=== PATIENT | male | born 1950 | race Caucasian/White ===

== ENCOUNTER 2020-01-02 10:00 | Emergency (ER) | payer BC, MEDICARE ==
--- NOTE | 2020-01-02 12:37 | ER Document Report ---
ED Medical Screen (RME) - General Chief Complaint: Cough Stated Complaint: SHORT OF BREATH,FEVER,COUGH Time Seen by Provider: 01/02/20 12:29 - HPI Notes: 01/02/20 12:35 69-year-old male presents to the emergency room with complaints of a dry cough with headache, sinus drainage, sore throat, insomnia for the last 2 days. Went to his primary care office today he had a fever 101F, his pcp advised him to come to the emergency room. Patient has not tried any [id number] medications. Reports he did get his flu shot this year. Denies any chest pain, shortness of breath, nausea, vomiting, or diarrhea. Symptoms have become progressive. Decreased eating drinking without issues. I have greeted and performed a rapid initial assessment of this patient. A comprehensive ED assessment and evaluation of the patient, analysis of test results and completion of the medical decision making process will be conducted by additional ED providers. PHYSICAL EXAMINATION: GENERAL: Well-appearing, well-nourished and in no acute distress. HEAD: Atraumatic, normocephalic. EYES: Pupils equal round extraocular movements intact, conjunctiva are normal. NECK: Normal range of motion CV: s1, s2 regular LUNGS: No respiratory distress - Related Data Allergies/Adverse Reactions: Penicillins Allergy (Verified 01/02/20 12:26) Past Medical History - Social History Frequency of alcohol use: None Drug Abuse: None Physical Exam - Vital signs Vitals: Temp Pulse Resp BP Pulse Ox 98.3 F 88 16 145/80 H 98 01/02/20 10:10 01/02/20 10:10 01/02/20 10:10 01/02/20 10:10 01/02/20 10:10 Course - Vital Signs Vital signs: Temp Pulse Resp BP Pulse Ox 98.3 F 88 16 145/80 H 98 01/02/20 10:10 01/02/20 10:10 01/02/20 10:10 01/02/20 10:10 01/02/20 10:10
--- NOTE | 2020-01-02 13:13 | RADIOLOGY REPORT (SQ) ---
EXAM DESCRIPTION: CHEST SINGLE VIEW IMAGES COMPLETED DATE/TIME: 01/02/2020 11:59 am REASON FOR STUDY: cough, fever 101 today COMPARISON: None. EXAM PARAMETERS: NUMBER OF VIEWS: One view. TECHNIQUE: Single frontal radiographic view of the chest acquired. RADIATION DOSE: NA LIMITATIONS: None. FINDINGS: LUNGS AND PLEURA: No opacities, masses or pneumothorax. No pleural effusion. MEDIASTINUM AND HILAR STRUCTURES: No masses. Contour normal. HEART AND VASCULAR STRUCTURES: Heart normal in size. Normal vasculature. BONES: No acute findings. HARDWARE: None in the chest. OTHER: No other significant finding. IMPRESSION: NO ACUTE RADIOGRAPHIC FINDING IN THE CHEST. TECHNICAL DOCUMENTATION: JOB ID: [id number] 2010 [employer]- All Rights Reserved Reading location - IP/workstation name: [email or web address]
[2020-01-02 13:22] LABS: ABSOLUTE EOSINOPHILS # (AUTO) 0.1 10^3/uL (0.0-0.6); ABSOLUTE LYMPHOCYTES (AUTO) 1.1 10^3/uL (0.5-4.7); ABSOLUTE MONOCYTES (AUTO) 0.7 10^3/uL (0.1-1.4); ABSOLUTE NEUT (AUTO) 5.9 10^3/uL (1.7-8.2); BASOPHILS % (AUTO) 0.6 % (0-2); EOSINOPHILS % (AUTO) 1.8 % (0-6); HEMOGLOBIN 14.4 g/dL (13.5-17.0); LYMPHOCYTES % (AUTO) 14.4 % (13-45); MEAN CORPUSCULAR HEMOGLOBIN 29.9 pg (27.0-33.4); MEAN CORPUSCULAR HGB CONC 35.3 g/dL (32.0-36.0); MEAN CORPUSCULAR VOLUME 85 fl (80-97); MONOCYTES % (AUTO) 8.7 % (3-13); PLATELET COUNT 222 10^3/uL (150-450); RED BLOOD COUNT 4.82 10^6/uL (4.35-5.55); RED CELL DISTRIBUTION WIDTH 13.5 % (11.5-14.0); SEGMENTED NEUTROPHILS % (AUTO) 74.5 % (42-78); TOTAL CELLS COUNTED % (AUTO) 100 %; WHITE BLOOD COUNT 7.9 10^3/uL (4.0-10.5)
[2020-01-02 13:48] LABS: A TYPE INFLUENZA AG NEGATIVE (NEGATIVE); B INFLUENZA AG NEGATIVE (NEGATIVE)
[2020-01-02 13:51] LABS: ANION GAP 9 (5-19); BLOOD UREA NITROGEN 12 mg/dL (7-20); CALCIUM 9.1 mg/dL (8.4-10.2); CARBON DIOXIDE 30 mmol/L (22-30); CHLORIDE 97 mmol/L (98-107); GLUCOSE 81 mg/dL (75-110)
[2020-01-02] MEDS ORDERED: IPRATROPIUM/ALBUTEROL 0.5-2.5 MG/3 ML AMPUL NEB ONE (14:19)
[2020-01-02] MEDS ORDERED: DEXAMETHASONE SOD PHOS INJ 10 MG/1 ML VIAL IM ONE (14:19)
--- NOTE | 2020-01-02 14:24 | ER Document Report ---
ED General - General Chief Complaint: Cough Stated Complaint: SHORT OF BREATH,FEVER,COUGH Time Seen by Provider: 01/02/20 12:29 Primary Care Provider: AMANDA WORKMAN MD [Primary Care Provider] - Follow up as needed Mode of Arrival: Ambulatory Information source: Patient Notes: Patient is a 69-year-old male coming in today with chief complaint deep rattling cough. Symptoms started last night and persisted all through the night. Patient reports no fevers or chills. No myalgias. No sick contacts. No nausea vomiting or diarrhea. Patient is feeling generally malaised. Does not have any history of respiratory illness. He does not smoke. - Related Data Allergies/Adverse Reactions: Penicillins Allergy (Verified 01/02/20 12:26) Past Medical History - Social History Smoking Status: Never Smoker Frequency of alcohol use: None Drug Abuse: None Family History: Reviewed & Not Pertinent Review of Systems - Review of Systems Notes: Constitutional: No fevers. No chills. EENT: No eye redness. No eye pain. No ear pain. No sore throat. Cardiovascular: No chest pain. No palpitations. Respiratory: +cough. +shortness of breath. No respiratory distress. Gastrointestinal: No abdominal pain. No nausea, vomiting, or diarrhea. Genitourinary: Atraumatic. No lesions. No pain. No discharge. Musculoskeletal: Atraumatic. No swelling. No deformities. Skin: No rash or lesions. Lymphatic: No swollen lymph nodes. Neurologic: No headache. No syncope. Psychiatric: No suicidal or homicidal ideation. Physical Exam - Vital signs Vitals: Temp Pulse Resp BP Pulse Ox 98.3 F 88 16 145/80 H 98 01/02/20 10:10 01/02/20 10:10 01/02/20 10:10 01/02/20 10:10 01/02/20 10:10 - Notes Notes: General: Well-developed, well-nourished. In no acute distress. Non-toxic appearing. Cardiac: Well-perfused. Regular rate and rhythm. No murmurs, rubs, or gallops. Pulmonary: No respiratory distress. No cyanosis. Bilateral lung cancino are diminished to auscultation Abdominal: Non-distended. Non-rigid. Bowels sounds are present in all four quadrants. No guarding or rebound. HEENT: Head is atraumatic. Conjunctivae not reddened. No tearing. PERRL. EOMI. Orbits atraumatic. No periorbital swelling or erythema. Oropharynx is without erythema, swelling, or exudates. Neck: Supple. No adenopathy. No meningismus. Dermatologic: Warm with good turgor. No rash. Atraumatic. Chest: Atraumatic. No chest wall tenderness to palpation. Musculoskeletal: Moves all extremities well. No range of motion deficits. no muscular or joint tenderness. No paraspinal muscle tenderness. no midline spinal tenderness or step-off. Genitourinary: Examination deferred Neurologic: No gross neurologic deficits. Psychiatric: Normal mood. Course - Re-evaluation Re-evalutation: 01/02/20 14:22 Patient is 69 years of age but does not have any other medical problems. His labs all look good his chest x-ray is negative and his influenza and strep tests are negative. I do have a moderate suspicion for Covid given the onset of this very bad deep cough. He has diminished breath sounds. We will start him with an intramuscular shot of dexamethasone and serial DuoNeb treatments and reassess his breathing afterward. Likely will need to discharge the patient home on Z- Esteban, albuterol, and a cough suppressant. 01/02/20 15:38 Patient's lung auscultation has improved since the DuoNeb treatment. He has received his dexamethasone. His x-ray is negative but suspect that he may be a possible coronavirus. He is advised of this. 3 days in isolation until he gets his results. We will start him on Zithromax, albuterol MDI, and Tessalon per his request. - Vital Signs Vital signs: Temp Pulse Resp BP Pulse Ox 98.3 F 88 16 145/80 H 98 01/02/20 10:10 01/02/20 10:10 01/02/20 10:10 01/02/20 10:10 01/02/20 10:10 - Laboratory Result Diagrams: 01/02/20 12:54 01/02/20 12:54 Laboratory results interpreted by me: 01/02/20 12:54 Sodium 136.0 L Chloride 97 L Discharge - Discharge Clinical Impression: Person under investigation for COVID-19, Elevated blood pressure reading Upper respiratory infection Qualifiers: URI type: unspecified URI Qualified Code(s): J06.9 - Acute upper respiratory infection, unspecified Condition: Good Disposition: HOME, SELF-CARE Instructions: COVID-19 Guidance for Persons Under Investigation, Upper Respiratory Illness ([facility]) Prescriptions: Benzonatate [Tessalon Perles 100 mg Capsule] 100 mg PO Q8HP PRN #30 capsule PRN Reason: Albuterol Sulfate [Proair Hfa Inhalation Aerosol 8.5 gm Mdi] 2 puff IH Q4 PRN #1 mdi PRN Reason: Azithromycin [Zithromax 250 mg Tablet] 250 mg PO ASDIR PRN #6 tablet PRN Reason: Forms: Elevated Blood Pressure Referrals: AMANDA WORKMAN MD [Primary Care Provider] - Follow up as needed
[2020-01-02 15:51] VITALS: BP 148/57
--- NOTE | 2020-01-03 22:12 | EKG REPORT ---
SEVERITY:- ABNORMAL ECG - SINUS RHYTHM RIGHT BUNDLE BRANCH BLOCK : Confirmed by: Spencer Hammond 03-Jan-2020 22:11:25
== END 2020-01-02 15:53 | disposition home or self-care (01) ==
LOC: ER 10:00
DX: J06.9 Acute upper respiratory infection, unspecified (principal); R05 Cough; R03.0 Elevated blood-pressure reading, without diagnosis of hypertension; R06.02 Shortness of breath; R50.9 Fever, unspecified; Z20.828 Contact with and (suspected) exposure to other viral communicable diseases; Z88.0 Allergy status to penicillin
CPT/HCPCS: 93005; 94640; 99285; 96372; 36415; 87070; 87880; 85025; 80048; 87804; 71045; 93010; U0003; J1100; C9803; 87635